=== PATIENT | male | born 1990 | race Caucasian/White ===

== ENCOUNTER 2019-04-29 10:39 | Emergency (ER) | payer SELFPAY ==
[~2019-04-29] VITALS: Ht 180.3 cm; Wt 90.7 kg
[2019-04-29 10:40] VITALS: BP_SYST 139
--- NOTE | 2019-04-29 10:41 | NUR ---
Patient triaged and placed in waiting room. VSS and patient appears in no acute distress at this time. Accompanied by SELF, awaiting available bed, and MD notified of need for MSE.
--- NOTE | 2019-04-29 11:10 | NUR ---
Patient presents to ER C/O flu symptoms. Patient A&Ox4, skin pink & warm, afebrile, ambulatory to ER, denies N/V/D, pain 02/05. Patient states flu-like symptoms & body achhes today.
--- NOTE | 2019-04-29 12:19 | NUR ---
BROUGHT BACK TO BED #3 AND REPORT GIVEN TO FLORENTINO
--- NOTE | 2019-04-29 13:30 | NUR ---
Patient given written and verbal discharge instructions and verbalizes understanding. ER MD discussed with patient the results and treatment provided. Patient in stable condition. ID arm band removed. Rx of TYLENOL WITH CODEINE, ZITHROMAX, ROBITUSSIN given. Patient educated on pain management and to follow up with PMD. Pain Scale 0/10. Opportunity for questions provided and answered. Medication side effect fact sheet provided.
[2019-04-29 13:31] VITALS: BP_SYST 127
== END 2019-04-29 13:30 | disposition home or self-care (01) ==
LOC: SED 10:39
DX: J10.1 Influenza due to other identified influenza virus with other respiratory manifestations (principal)
CPT/HCPCS: 36415; 86710; 99283

== ENCOUNTER 2019-08-31 15:54 | Emergency (ER) | payer MEDICAID ==
[~2019-08-31] VITALS: Ht 180.3 cm; Wt 90.7 kg
[2019-08-31 15:55] VITALS: BP_SYST 156
[2019-08-31 16:35] LABS: BASOPHILS % (AUTO) 0.3 % (0.0-2.0); EOSINOPHILS # (AUTO) 0.3 K/uL (0.0-0.4); EOSINOPHILS % (AUTO) 2.5 % (0.0-4.0); HEMATOCRIT 44.4 % (36-54); HEMOGLOBIN 15.3 g/dL (14.0-18.0); LYMPHOCYTES # (AUTO) 3.1 K/uL (1.0-5.5); LYMPHOCYTES % (AUTO) 29.3 % (20.5-51.5); MEAN CORPUSCULAR HEMOGLOBIN 31 pg (27-31); MEAN CORPUSCULAR HGB CONC 35 % (32-36); MEAN CORPUSCULAR VOLUME 90 fL (79.0-98.0); MONOCYTES # (AUTO) 0.7 K/uL (0.0-1.0); MONOCYTES % (AUTO) 7.1 % (1.7-9.3); NEUTROPHILS # (AUTO) 6.4 K/uL (1.8-7.7); NEUTROPHILS % (AUTO) 60.8 % (40.0-70.0); PLATELET COUNT (AUTO) 307 K/uL (130-430); RED BLOOD CELL COUNT(AUTO) 4.94 MIL/uL (4.2-6.2); WHITE BLOOD COUNT (AUTO) 10.5 K/uL (4.8-10.8)
[2019-08-31 16:59] LABS: CALCIUM 8.6 mg/dL (8.4-11.0); CREATININE 1.07 mg/dL (0.55-1.30)
[2019-08-31 17:14] LABS: THYROID STIMULATING HORMONE 1.05 uIu/mL (0.36-3.74)
[2019-08-31 17:18] LABS: BARBITURATE, URINE NEGATIVE (NEG <=200); BENZODIAZEPINE, URINE NEGATIVE (NEG <=150); CANNABINOID, URINE NEGATIVE (NEG <=50); COCAINE, URINE NEGATIVE (NEG <=150); METHAMPHETAMINES SCREEN,URINE NEGATIVE (NEG <=500); OPIATE, URINE NEGATIVE (NEG <=100); PHENCYCLIDINE SCREEN,URINE NEGATIVE (NEG <=25); UR TRICYCLIC ANTIDEPRESSANTS NEGATIVE (NEG <=300); URINE AMPHETAMINE NEGATIVE (NEG <=500); URINE METHADONE NEGATIVE (NEG <=200); URINE OXYCODONE SCREEN NEGATIVE (NEG <=100); URINE PROPOXYPHENE SCREEN NEGATIVE (NEG <=300)
[2019-08-31 17:34] VITALS: BP_SYST 156
== END 2019-08-31 17:34 | disposition home or self-care (01) ==
LOC: SED 15:54
DX: G47.00 Insomnia, unspecified (principal)
CPT/HCPCS: 36415; 80048; 80307; 84443-TC; 85025; 99283

== ENCOUNTER 2019-09-12 14:07 | Emergency (ER) | payer MEDICAID ==
[2019-09-12 14:43] VITALS: BP_SYST 129
--- NOTE | 2019-09-12 14:50 | NUR ---
Patient triaged and placed in waiting room. VSS and patient appears in no acute distress at this time. Accompanied bySELF, awaiting available bed, and MD notified of need for MSE.
--- NOTE | 2019-09-12 14:56 | NUR ---
Patient to ER TRIAGE for evaluation. Side rails up.
--- NOTE | 2019-09-12 14:57 | NUR ---
ER Dr. VARGAS at bedside examining patient in triage room.
[2019-09-12 15:26] VITALS: BP_SYST 129
--- NOTE | 2019-09-12 15:27 | NUR ---
Patient given written and verbal discharge instructions and verbalizes understanding. ER MD discussed with patient the results and treatment provided. Patient in stable condition. ID arm band removed. Rx of ATARAX given. Patient educated on pain management and to follow up with PMD. Pain Scale 0/10. Opportunity for questions provided and answered. Medication side effect fact sheet provided.
== END 2019-09-12 15:26 | disposition home or self-care (01) ==
LOC: SED 14:07
DX: G47.00 Insomnia, unspecified (principal)
CPT/HCPCS: 99283